=== PATIENT | female | born 2000 | race Two or more races ===

== ENCOUNTER 2020-09-22 00:37 | Emergency (ER) | payer SELFPAY ==
[~2020-09-22] VITALS: Ht 162.6 cm; Wt 49.9 kg
[2020-09-22] MEDS ORDERED: KETAMINE 50mg/ML 10ml Vial (500mg/10ml) IV ONE ×2 (01:15)
[2020-09-22] MEDS ORDERED: MIDAZOLAM DRIP 50 mg/50mL 50 ML IV SCH (01:15)
[2020-09-22] MEDS ORDERED: SUCCINYLCHOLINE CHLORIDE 20 MG/ML 10ML VIAL IV ONE ×2 (01:15)
[2020-09-22 01:22] VITALS: BP 128/79
== END 2020-09-22 01:30 | disposition short-term general hospital (02) ==
LOC: EDBD 00:37 → ER 00:37
DX: S21.132A Puncture wound without foreign body of left front wall of thorax without penetration into thoracic cavity, initial encounter (principal); J93.83 Other pneumothorax; R00.0 Tachycardia, unspecified; R41.82 Altered mental status, unspecified; W34.09XA Accidental discharge from other specified firearms, initial encounter; Y93.89 Activity, other specified; Y92.89 Other specified places as the place of occurrence of the external cause; Y99.8 Other external cause status
CPT/HCPCS: 31500; 32551; 71045; 86850; 86900; 86901; 86920; 94002; 96365; 99152; 99291; J0330; J2250; P9016